=== PATIENT | male | born 1945 | race Caucasian/White ===

== ENCOUNTER → 2020-04-24 | Outpatient (CLI) | payer MEDICARE ==
[~2020-04-24] MED LIST: ATROVENT HFA12.9 GM INH; GLIPIZIDE XL5 MG PO; IBUPROFEN600 MG PO; NORCO 5-325 TA1 EACH PO; NORFLEX 100 MG100 MG PO; PREDNISONE20 MG PO; PROVENTIL HFA6.7 GM INH; ROBAXIN 750 MG750 MG PO; ROBITUSSIN DM UD5 ML PO; TESSALON PERLE100 MG PO; Voltaren Gel 1% TOP; ZITHROMAX250 MG PO
== END ==
LOC: EXRD 08:46 → HEART 5 08:46 → EXRD 04-25 13:00
DX: I47.1 Supraventricular tachycardia (principal); R06.02 Shortness of breath; I27.20 Pulmonary hypertension, unspecified; I08.3 Combined rheumatic disorders of mitral, aortic and tricuspid valves
CPT/HCPCS: 93306

== ENCOUNTER → 2020-04-25 | Outpatient (CLI) | payer MEDICARE | LOC: EXRD 12:51 | DX: M79.604 Pain in right leg (principal) | CPT/HCPCS: 93922; 93925 ==

== ENCOUNTER 2020-09-11 08:28 | Emergency (ER) | payer MEDICARE ==
[~2020-09-11 08:28] MED LIST changes: -NORFLEX 100 MG100 MG PO; -Voltaren Gel 1% TOP
[2020-09-11] MEDS ORDERED: Voltaren Gel 1% TOP (10:56)
[2020-09-11] MEDS ORDERED: NORFLEX 100 MG100 MG PO (10:56)
== END 2020-09-11 11:35 | disposition home or self-care (01) ==
LOC: ER1 08:28
DX: M25.512 Pain in left shoulder (principal); M54.5 Low back pain; E11.9 Type 2 diabetes mellitus without complications; W13.0XXA Fall from, out of or through balcony, initial encounter; Y92.009 Unspecified place in unspecified non-institutional (private) residence as the place of occurrence of the external cause
CPT/HCPCS: 72100; 73030; 73060; 73090; 99283

== ENCOUNTER 2020-10-14 18:37 | Emergency (ER) | payer MEDICARE ==
[~2020-10-14 18:37] MED LIST changes: +NORFLEX 100 MG100 MG PO; +Voltaren Gel 1% TOP
[2020-10-14 19:30] LABS: HEMOGLOBIN 17.3 gm/dl (14.0-17.5); RED BLOOD COUNT 5.65 M/UL (4.20-5.50); WHITE BLOOD COUNT 13.6 K/UL (4.5-11.0)
[2020-10-14 19:47] LABS: BUN/CREATININE RATIO 17 (0-10)
== END 2020-10-14 21:15 | disposition short-term general hospital (02) ==
LOC: ER1 18:37
PROVIDERS: Emergency Medicine
DX: R56.9 Unspecified convulsions (principal); E11.9 Type 2 diabetes mellitus without complications; I10 Essential (primary) hypertension; Z20.822 Contact with and (suspected) exposure to COVID-19; Z23 Encounter for immunization
CPT/HCPCS: 36600; 51702; 70450; 71045; 80053; 80307; 81001; 82009; 82550; 82553; 82803; 82962; 83605; 83690; 83735; 83874; 83880; 84484; 85025; 85610; 85730; 90471; 90715; 93005; 96374; 96375; 99285; G0480; J1953; J2060; J2405; U0002